=== PATIENT | female | born 1985 | race Caucasian/White ===

== ENCOUNTER → 2017-03-13 | Outpatient (CLI) | payer BC ==
[~2017-03-13] MED LIST: MEDR150I
[2017-03-13 10:53] LABS: CHOLESTEROL/HDL RATIO 3.1
== END | disposition home or self-care (01) ==
LOC: C.LABBC 08:09
PROVIDERS: ATTEND Physician Assistant
DX: Z87.09 Personal history of other diseases of the respiratory system (principal)

== ENCOUNTER → 2017-05-23 | Outpatient (CLI) | payer BC ==
--- NOTE | 2017-05-23 10:34 | DIAGNOSTIC IMAGING REPORT ---
SOFT TISS HEAD/NECK-THYROID CLINICAL HISTORY: 32 years-old Female with E07.89 Thyroid [id number]. COMPARISON: None available TECHNIQUE: Multiple real time sonographic images of the thyroid were obtained accessing english scale appearance and color doppler flow. FINDINGS: MEASUREMENTS: Right lobe: 1.6 x 4.9 x 1.1 cm Left lobe: 1.6 x 5.4 x 1.1 cm Isthmus: 0.4 cm PARENCHYMA: The thyroid parenchymal echotexture is generally homogeneous without significant hypervascularity. NODULES: No discrete nodules are appreciated. IMPRESSION: No thyroid nodule identified. The above report was generated using voice recognition software. It may contain grammatical, syntax or spelling errors. Electronically signed by: Anam Chavez M.D. 05/23/2017 10:32 AM Dictated Date/Time: 05/23/2017 10:31 AM
== END | disposition home or self-care (01) ==
LOC: C.ULTR 09:47
PROVIDERS: ATTEND Physician Assistant
DX: E07.89 Other specified disorders of thyroid (principal)

== ENCOUNTER → 2017-06-12 | Outpatient (CLI) | payer OTHER ==
[~2017-06-12] MED LIST changes: +GADAVIST IV PRN
--- NOTE | 2017-06-12 09:48 | DIAGNOSTIC IMAGING REPORT ---
MRI OF THE BRAIN COMBO CLINICAL HISTORY: Migraine headache. Visual aura. COMPARISON STUDY: No priors. TECHNIQUE: MRI of the brain was performed utilizing various T1 and T2-weighted sequences in the axial, sagittal, and coronal planes. Contrast-enhanced sequences were acquired following the administration of 9 cc of Gadavist. FINDINGS: Brain parenchyma: The brain parenchyma is normal in appearance. There is no hemorrhage or mass effect. There is no restricted diffusion to suggest acute ischemia. No enhancing mass lesion is identified on the postcontrast images. Rodrigues-white matter differentiation is preserved. No extra-axial fluid collection is seen. The cerebellar tonsils are normal in configuration. Ventricles, sulci, and cisterns: Normal in configuration. Cavum septum pellucidum is incidentally noted. Pituitary and sella: Unremarkable. Intracranial vasculature: Normal flow voids are maintained at the skull base. Orbits: The bony orbits are grossly intact. Orbital contents are normal in appearance. Sinuses and mastoids: Clear. Calvarium: Unremarkable. Cervical cord: Partially visualized cervical spinal cord is normal in morphology and signal intensity. IMPRESSION: No acute intracranial abnormality. Electronically signed by: Jesus Barrera M.D. 06/12/2017 9:47 AM Dictated Date/Time: 06/12/2017 9:40 AM
== END | disposition home or self-care (01) ==
LOC: C.MRIBC 08:45
PROVIDERS: ATTEND Physician Assistant
DX: G43.909 Migraine, unspecified, not intractable, without status migrainosus (principal); H53.9 Unspecified visual disturbance

== ENCOUNTER → 2017-09-11 | Outpatient (CLI) | payer OTHER ==
[~2017-09-11] MED LIST changes: -GADAVIST IV PRN
== END | disposition home or self-care (01) ==
LOC: C.PAPS 14:32
PROVIDERS: ATTEND Obstetrics & Gynecology
DX: Z12.4 Encounter for screening for malignant neoplasm of cervix (principal); Z11.51 Encounter for screening for human papillomavirus (HPV); R87.610 Atypical squamous cells of undetermined significance on cytologic smear of cervix (ASC-US)